=== PATIENT | female | born 1980 | race African-American/Black ===

== ENCOUNTER 2018-02-05 20:15 | Emergency (ER) | payer SELFPAY ==
[2018-02-05] MEDS ORDERED: Ibuprofen 800 MG TAB ONE (21:15)
[2018-02-05] MEDS ORDERED: Sulfameth/Trimethoprim DS 800-160mg TAB ONE (21:15)
== END 2018-02-05 21:28 | disposition home or self-care (01) ==
LOC: NAV ERS 20:15
DX: L72.3 Sebaceous cyst (principal); J45.909 Unspecified asthma, uncomplicated; F17.210 Nicotine dependence, cigarettes, uncomplicated
CPT/HCPCS: 99283

== ENCOUNTER 2019-01-12 18:41 | Emergency (ER) | payer SELFPAY ==
[2019-01-12 19:19] LABS: Bilirubin Negative (Negative); Blood, Urine Large (Negative); Glucose, Urine (Dipstick) Negative (Negative); Leukocyte Moderate (Negative); Nitrite Negative (Negative); Protein, Urine (Dipstick) Negative (Neg-Trace); Urobilinogen 0.2 mg/dL (0.2-1.0)
[2019-01-12 19:21] LABS: Clarity Hazy (Clear)
[2019-01-12 19:31] LABS: Bacteria/HPF 1+ HPF (None Seen); RBC/HPF 0-3 HPF (0-3); Specific Gravity, Urine 1.024 (1.002-1.036)
== END 2019-01-12 20:00 | disposition home or self-care (01) ==
LOC: NAV ERS 18:41
DX: K02.9 Dental caries, unspecified (principal); K03.81 Cracked tooth; N30.00 Acute cystitis without hematuria; J45.909 Unspecified asthma, uncomplicated; F17.210 Nicotine dependence, cigarettes, uncomplicated
CPT/HCPCS: 81003; 81015; 87086; 99283

== ENCOUNTER 2019-12-12 18:40 | Emergency (ER) | payer OTHER, SELFPAY | END 2019-12-12 20:15 | disposition home or self-care (01) | LOC: NAV ERS 18:40 | DX: J06.9 Acute upper respiratory infection, unspecified (principal); J45.909 Unspecified asthma, uncomplicated; F17.210 Nicotine dependence, cigarettes, uncomplicated | CPT/HCPCS: 87081; 87430; 87804; 99283 ==

== ENCOUNTER 2021-03-02 19:19 | Emergency (ER) | payer SELFPAY | END 2021-03-02 19:55 | disposition home or self-care (01) | LOC: NAV ERS 19:19 | DX: K02.9 Dental caries, unspecified (principal); F17.210 Nicotine dependence, cigarettes, uncomplicated | CPT/HCPCS: 99282 ==

== ENCOUNTER 2021-12-20 10:17 | Emergency (ER) | payer SELFPAY ==
[2021-12-20] MEDS ORDERED: Ibuprofen 800 MG TAB ONE (11:14)
== END 2021-12-20 11:32 | disposition home or self-care (01) ==
LOC: NAV ERS 10:17
DX: M25.561 Pain in right knee (principal); J45.909 Unspecified asthma, uncomplicated; F17.200 Nicotine dependence, unspecified, uncomplicated; X50.1XXA Overexertion from prolonged static or awkward postures, initial encounter; Y92.002 Bathroom of unspecified non-institutional (private) residence as the place of occurrence of the external cause

== ENCOUNTER 2022-02-26 17:36 | Emergency (ER) | payer SELFPAY ==
[2022-02-26] MEDS ORDERED: Ketorolac Tromethamine 60 MG/2 ML VIAL ONE (17:57)
[2022-02-26] MEDS ORDERED: AMOXicillin 250 MG CAP ONE (17:57)
== END 2022-02-26 18:20 | disposition home or self-care (01) ==
LOC: NAV ERS 17:36
DX: K08.89 Other specified disorders of teeth and supporting structures (principal); K02.9 Dental caries, unspecified; F17.210 Nicotine dependence, cigarettes, uncomplicated
CPT/HCPCS: 96372; 99282; J1885

== ENCOUNTER 2022-08-21 18:22 | Emergency (ER) | payer SELFPAY ==
[2022-08-21 19:25] LABS: Bilirubin Negative (Negative); Blood, Urine Large (Negative); Glucose, Urine (Dipstick) Negative (Negative); Ketone, Urine Negative (Negative); Leukocyte Small (Negative); Nitrite Negative (Negative); Protein, Urine (Dipstick) Negative (Neg-Trace); Urobilinogen 0.2 mg/dL (Less than 2); pH, Urine 5.5 (5.0-9.0)
[2022-08-21 19:43] LABS: Clarity SL HAZY (Clear); Specific Gravity, Urine 1.026 (1.002-1.036)
[2022-08-21 19:44] LABS: Bacteria/HPF Rare-Few HPF (None Seen); RBC/HPF 0-3 HPF (0-3); Trichomonas/HPF Rare HPF (None Seen)
[2022-08-21] MEDS ORDERED: Cephalexin 250 MG CAP ONE (19:52)
[2022-08-21] MEDS ORDERED: Naproxen 500 MG TAB ONE (19:52)
== END 2022-08-21 19:57 | disposition home or self-care (01) ==
LOC: NAV ERS 18:22
DX: N39.0 Urinary tract infection, site not specified (principal); F17.210 Nicotine dependence, cigarettes, uncomplicated
CPT/HCPCS: 81003; 81015; 87086; 99284

== ENCOUNTER 2022-10-06 07:29 | Emergency (ER) | payer SELFPAY | END 2022-10-06 08:10 | disposition home or self-care (01) | LOC: NAV ERS 07:29 | DX: J86.9 Pyothorax without fistula (principal); J45.909 Unspecified asthma, uncomplicated; F17.210 Nicotine dependence, cigarettes, uncomplicated | CPT/HCPCS: 87070; 87205; 99283 ==

== ENCOUNTER 2022-10-23 07:58 | Emergency (ER) | payer SELFPAY | END 2022-10-23 09:05 | disposition home or self-care (01) | LOC: NAV ERS 07:58 | DX: J45.909 Unspecified asthma, uncomplicated (principal); F17.210 Nicotine dependence, cigarettes, uncomplicated | CPT/HCPCS: 99284 ==

== ENCOUNTER 2022-11-09 14:40 | Emergency (ER) | payer OTHER | END 2022-11-09 17:40 | disposition home or self-care (01) | LOC: NAV ERS 14:40 | DX: S93.402A Sprain of unspecified ligament of left ankle, initial encounter (principal); F17.210 Nicotine dependence, cigarettes, uncomplicated; J45.909 Unspecified asthma, uncomplicated; X58.XXXA Exposure to other specified factors, initial encounter | CPT/HCPCS: 99283 ==

== ENCOUNTER 2022-11-22 18:08 | Emergency (ER) | payer OTHER ==
[2022-11-22] MEDS ORDERED: Fluorescein Opthalmic Strip ONE (18:32)
[2022-11-22] MEDS ORDERED: Tetracaine 0.5% PF 4 ML BOT ONE (18:32)
[2022-11-22] MEDS ORDERED: Erythromycin Base 0.5% Oint 1 GM TUBE ONE (19:29)
[2022-11-22] MEDS ORDERED: Ibuprofen 800 MG TAB ONE (19:29)
== END 2022-11-22 19:40 | disposition home or self-care (01) ==
LOC: NAV ERS 18:08
DX: S05.01XA Injury of conjunctiva and corneal abrasion without foreign body, right eye, initial encounter (principal); H20.00 Unspecified acute and subacute iridocyclitis; H10.31 Unspecified acute conjunctivitis, right eye; F17.210 Nicotine dependence, cigarettes, uncomplicated; X58.XXXA Exposure to other specified factors, initial encounter
CPT/HCPCS: 99283

== ENCOUNTER 2023-01-08 18:03 | Emergency (ER) | payer SELFPAY ==
[2023-01-08] MEDS ORDERED: Dexamethasone 20 MG/5 ML VIAL ONE (19:20)
[2023-01-08] MEDS ORDERED: Diazepam 10 MG/2 ML SYRINGE ONE (19:20)
[2023-01-08] MEDS ORDERED: Ketorolac Tromethamine 60 MG/2 ML VIAL ONE (19:21)
[2023-01-08 20:40] LABS: Bilirubin Negative (Negative); Blood, Urine Trace (Negative); Glucose, Urine (Dipstick) Negative (Negative); Ketone, Urine Negative (Negative); Leukocyte Small (Negative); Nitrite Negative (Negative); Protein, Urine (Dipstick) Negative (Neg-Trace); Urobilinogen 0.2 mg/dL (Less than 2)
[2023-01-08 20:50] LABS: Clarity Hazy (Clear); Specific Gravity, Urine 1.025 (1.002-1.036)
[2023-01-08 20:56] LABS: Bacteria/HPF 1+ HPF (None Seen); RBC/HPF 0-3 HPF (0-3); Trichomonas/HPF 2+ HPF (None Seen)
[2023-01-08 20:57] LABS: Pregnancy Test - Urine (BHCG) Negative (Negative); Pregu Control Background? CLEAR/WHITE (CLR/WHITE); Pregu Control Bar Appear? YES (CONTROL BAR); Specific Gravity 1.025 (1.002-1.036)
[2023-01-08] MEDS ORDERED: metroNIDAZOLE 500 MG TAB ONE (21:47)
[2023-01-08] MEDS ORDERED: Cephalexin 250 MG CAP ONE (21:48)
== END 2023-01-08 22:05 | disposition home or self-care (01) ==
LOC: NAV ERS 18:03
DX: M54.32 Sciatica, left side (principal); A59.9 Trichomoniasis, unspecified; N39.0 Urinary tract infection, site not specified; F17.210 Nicotine dependence, cigarettes, uncomplicated
CPT/HCPCS: 72131; 81003; 81015; 81025; 96372; J1100; J1885; J3360

== ENCOUNTER 2023-07-10 20:24 | Emergency (ER) | payer OTHER, SELFPAY ==
[2023-07-10] MEDS ORDERED: Ipratropium/Albuterol 3 ML NEB ONE (20:38)
[2023-07-10] MEDS ORDERED: Dexamethasone 20 MG/5 ML VIAL ONE (20:38)
[2023-07-10] MEDS ORDERED: Labetalol HCl 100 MG/20 ML VIAL ONE (20:41)
[2023-07-10] MEDS ORDERED: Ketorolac Tromethamine 30 MG/ML VIAL ONE (20:41)
[2023-07-10 21:06] LABS: #Basophils 0.1 thou/uL (0.0-0.2); #Eosinphils 0.2 thou/uL (0.0-0.7); #Lymphocytes 3.2 thou/uL (1.20-3.40); #Monocytes 0.5 thou/uL (0.11-0.59); #Neutrophils 5.7 thou/uL (1.40-6.50); %Eosinophils 2.5 % (0.0-10.0); %Lymphocytes 32.8 % (21.0-51.0); %Neutrophils 58.7 % (42.0-75.0); Hematocrit 39.3 % (36.0-47.0); Mean Corpuscular HGB CONC 30.5 g/dL (32.0-36.0); Mean Corpuscular Hemoglobin 22.3 pg (27.0-31.0); Mean Corpuscular Volume 73.1 fl (78.0-98.0); Mean Platelet Volume 7.5 fL (7.4-10.4); Platelet Count 244 10x3/uL (130-400); RBC Distribution Width 15.4 % (11.5-14.5); Red Blood Cell (RBC) Count 5.38 mill/uL (4.20-5.40); White Blood Cell (WBC) Count 9.8 10x3/uL (4.8-10.8)
[2023-07-10 21:15] LABS: BUN (Urea Nitrogen) 9 mg/dL (7.0-18.7); Calc. Creatinine Clearance 0 mL/min (70-130); Calcium 9.3 mg/dL (7.6-10.4); Carbon Dioxide 20 mmol/L (22-29); Chloride 108 mmol/L (98-107); Estimated GFR 96; Glucose 113 mg/dL (70-105); Potassium 4.1 mmol/L (3.5-5.1); Sodium 137 mmol/L (136-145)
[2023-07-10 21:16] LABS: ALT (SGPT) 16 U/L (8-55); AST (SGOT) 17 U/L (5-34); Albumin 3.7 g/dL (3.5-5.0); Alkaline Phosphatase 96 U/L (40-110); Bilirubin, Total Less than 0.2 mg/dL (0.2-1.2); Globulin 3.3 g/dL (2.4-3.5); Troponin I Less than 0.010 ng/mL (< 0.028)
[2023-07-11 00:02] LABS: Anion Gap 13 mmol/L (10-20)
== END 2023-07-10 21:45 | disposition home or self-care (01) ==
LOC: NAV ERS 20:24
DX: J45.909 Unspecified asthma, uncomplicated (principal); R03.0 Elevated blood-pressure reading, without diagnosis of hypertension; F17.210 Nicotine dependence, cigarettes, uncomplicated
CPT/HCPCS: 71046; 80053; 83880; 84484; 85025; 93005; 96374; 96375; J1100; J1885; J7620

== ENCOUNTER 2023-11-02 16:30 | Emergency (ER) | payer OTHER ==
[2023-11-02] MEDS ORDERED: predniSONE 20 MG TAB ONE (18:10)
[2023-11-02] MEDS ORDERED: Oseltamivir 75 MG CAP ONE (18:10)
== END 2023-11-02 18:32 | disposition home or self-care (01) ==
LOC: NAV ERS 16:30
DX: J11.1 Influenza due to unidentified influenza virus with other respiratory manifestations (principal); J45.901 Unspecified asthma with (acute) exacerbation; F17.210 Nicotine dependence, cigarettes, uncomplicated
CPT/HCPCS: 87081; 87430; 87804; 99283; J7512

== ENCOUNTER 2025-10-10 23:05 | Emergency (ER) | payer BC ==
[2025-10-10] MEDS ORDERED: Ketorolac Tromethamine 30 MG (1 mL) VIAL ONE (23:28)
[2025-10-10 23:46] LABS: BHCG - Serum Negative (NEGATIVE); Pregs Control Bar Appear? YES (CONTROL BAR)
[2025-10-10 23:48] LABS: #Basophils 0.7 thou/uL (0.0-0.2); #Eosinophils 0.1 thou/uL (0.0-0.7); #Lymphocytes 3.2 thou/uL (1.20-3.40); #Monocytes 0.9 thou/uL (0.11-0.59); #Neutrophils 10.7 thou/uL (1.40-6.50); %Basophils 4.3 % (0.0-1.0); %Eosinophils 0.8 % (0.0-10.0); %Lymphocytes 20.6 % (21.0-51.0); %Monocytes 5.6 % (0.0-10.0); %Neutrophils 68.8 % (42.0-75.0); Hematocrit 42.0 % (36.0-47.0); Hemoglobin 13.0 g/dL (12.0-16.0); Mean Corpuscular Hemoglobin 23.0 pg (27.0-31.0); Mean Corpuscular Volume 74.7 fl (78.0-98.0); Platelet Count 224 10x3/uL (130-400); Red Blood Cell (RBC) Count 5.63 mill/uL (4.20-5.40); White Blood Cell (WBC) Count 15.5 10x3/uL (4.8-10.8)
[2025-10-10 23:57] LABS: Troponin I Less than 0.010 ng/mL (< 0.028)
[2025-10-10 23:58] LABS: ALT (SGPT) 9 U/L (Less than 34); AST (SGOT) 16 U/L (11-34); Albumin 3.6 g/dL (3.1-4.5); Alkaline Phosphatase 77 U/L (40-110); Anion Gap 13 mmol/L (10-20); BUN (Urea Nitrogen) 12 mg/dL (7.0-18.7); Bilirubin, Total 0.2 mg/dL (0.3-1.2); Calc. Creatinine Clearance 0 mL/min (70-130); Calcium 9.3 mg/dL (7.8-10.44); Carbon Dioxide 22 mmol/L (22-29); Chloride 104 mmol/L (98-107); Globulin 3.6 g/dL (2.4-3.5); Glucose 108 mg/dL (70-105); Potassium 4.3 mmol/L (3.5-5.1); Sodium 135 mmol/L (136-145)
[2025-10-11] MEDS ORDERED: Albuterol 2.5 MG (3 mL) NEB ONE (00:18)
[2025-10-11] MEDS ORDERED: Acetaminophen 500 MG TAB ONE (00:18)
== END 2025-10-11 00:40 | disposition home or self-care (01) ==
LOC: NAV ERS 23:05
DX: J45.901 Unspecified asthma with (acute) exacerbation (principal); I10 Essential (primary) hypertension; F17.210 Nicotine dependence, cigarettes, uncomplicated
CPT/HCPCS: 71046; 80053; 84484; 84703; 85025; 87428; 93005; 94640; 96374; 96375; J1885; J2919; J7611; J7626